=== PATIENT | male | born 1950 | race African-American/Black ===

== ENCOUNTER 2018-03-24 03:10 | Emergency (ER) | payer SELFPAY ==
[~2018-03-24] VITALS: Ht 177.8 cm; Wt 95.0 kg
[2018-03-24 03:14] VITALS: BP 0/0
[2018-03-24] MEDS ORDERED: EPINEPHRINE 0.1MG/ML (1:10,000) 10ML SYR ONE ×2 (03:33→15:08)
[2018-03-24] MEDS ORDERED: CALCIUM CHLORIDE 1GM/10ML SYR IV ONE (15:08)
[2018-03-24] MEDS ORDERED: DEXTROSE 50% WATER 50ML SYRINGE IV ONE (15:08)
[2018-03-24] MEDS ORDERED: ATROPINE SULFATE 1MG/10ML SYR ONE (15:08)
== END 2018-03-24 03:37 | disposition expired ==
LOC: EDBD 03:25 → ER 03:25
DX: T88.6XXA Anaphylactic reaction due to adverse effect of correct drug or medicament properly administered, initial encounter (principal); T40.5X5A Adverse effect of cocaine, initial encounter; I46.9 Cardiac arrest, cause unspecified; Y92.89 Other specified places as the place of occurrence of the external cause
CPT/HCPCS: 31500; 31605; 82962; 92950; 99285; J0461; J3490